=== PATIENT | male | born 2005 | race Caucasian/White ===

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

== ENCOUNTER 2024-02-02 13:55 | Emergency (ER) | payer BC, SELFPAY ==
--- NOTE | ~2024-02-02 | XR_ITS ---
EXAMINATION: XR lumbar spine 2-3V DATE: 02/02/2024 14:50 INDICATION: Back pain. TECHNIQUE: 3 views of lumbar spine were obtained. COMPARISON: None. FINDINGS: Bone alignment is normal. Vertebral body heights are normal. Intervertebral disc heights ar e normal. The facet joints are normal. IMPRESSION: 1. Normal lumbar spine. Reviewed, dictated and finalized at location A. IMPRESSION: 1. Normal lumbar spine.
--- NOTE | ~2024-02-02 | XR_ITS ---
EXAMINATION: [id number] DATE: 02/02/2024 14:49 INDICATION: Left rib pain. TECHNIQUE: A frontal view of the chest and 2 views on 3 radiographs of the left ribs were obtained. COMPARISON: None. FINDINGS: There is no pneumonia, pleural effusion, or pneumothorax. The heart size is normal. IMPRESSION: 1. No rib fracture. Reviewed, dictated and finalized at location A. IMPRESSION: 1. No rib fracture.
[2024-02-02 13:55] VITALS: BP 116/62; PULSE 71; RESP 16; TEMP 36.6; O2SAT 100
[2024-02-02] MEDS: ACETAMINOPHEN 325 MG TABLET 650 MG PO (14:28)
[2024-02-02] MEDS: IBUPROFEN 600 MG TABLET PO (14:28)
[2024-02-02] MEDS: CYCLOBENZAPRINE HCL 10 MG TABLET PO (14:29)
--- NOTE | 2024-02-02 14:29 | ED.GENADULT ---
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 This morning he woke up and had low back pain which subsequently radiated to the left ribcage and up to the left chest, worse with movement or lifting objects, relieved by rest. He took ibuprofen 800 mg at 6:40 a.m.. He went to work but was having a hard time doing his job she comes here for evaluation. Denies dyspnea. No abdominal pain. No falls or trauma. No paresthesias or radiculopathy symptoms in the upper lower extremities. No previous similar history. Related Data Allergies Allergy/AdvReac Type Severity Reaction Status Date / Time No Known Allergies Allergy Verified 02/02/24 14:25 Review of Systems Review of Systems: All systems reviewed & are unremarkable except as noted in HPI and below Constitutional: Constitutional: Denies chills, Denies excessive sweating, Denies fatigue, Denies fever(s), Denies headache(s) and Denies weakness Eyes: Eyes: Denies change in vision and Denies photophobia ENT: Denies dysphagia, Denies dizziness, Denies headache(s), Denies lip swelling, Denies nasal congestion, Denies sore throat and Denies tongue swelling Cardiovascular: Cardiovascular: Reports chest pain (left lateral chest wall), Denies syncope, Denies rapid heart rate and Denies dyspnea Respiratory: Respiratory: Denies cough, Denies dyspnea and Denies wheezing Gastrointestinal: Gastrointestinal: Reports abdominal pain (left flank), Denies constipation, Denies dysphagia, Denies diarrhea, Denies nausea and Denies vomiting Genitourinary: Genitourinary: Denies hematuria, Denies dysuria, Denies urinary frequency and Denies urinary urgency Musculoskeletal: Musculoskeletal: Reports back pain (lower back), Denies myalgias, Denies arthralgias, Denies joint swelling, Denies muscle cramps and Denies numbness Integumentary/Breasts: Skin/Breast: Denies pruritus, Denies erythema and Denies rash Neurologic: Denies confusion, Denies dizziness, Denies syncope, Denies headache(s), Denies focal weakness, Denies numbness and Denies weakness Psychiatric: Psychiatric: Denies anxiety and Denies confusion Endocrine: Endocrine: Denies excessive sweating and Denies fatigue Hematologic/Lymphatic: Hematologic/Lymphatic: Denies easy bleeding and Denies easy bruising Allergic/Immunologic: Allergic/Immunologic: Denies lip swelling, Denies tongue swelling and Denies wheezing PMFSH Past Medical History Medical History (Updated 02/02/24 @ 15:23 by Laureano Resendez MD) ADHD Depression Surgical History Surgical History History of placement of ear tubes Family History Family History Mother Family history of type 2 diabetes mellitus Social History Social History Smoking status: Never smoker Alcohol intake: never Living arrangements: with family Additional living arrangements comments: Lives with his mother and 1 brother. Has no contact with is father. Occupation/Education: student Exam Const: General: healthy appearing, no acute distress, alert and well nourished Nutritional Appearance: well nourished Orientation/consciousness: patient oriented x3 Limitations: no limitations HENMT: Head: normal to inspection Ears: external ears normal Face/Nose/Sinus: normal facial exam Face and sinus: normal facial exam Mouth: Yes moist mucous membranes Throat: posterior oropharynx normal Eyes: Conjunctivae: conjunctivae normal Pupils: Equal, round and reactive pupils present EOM: EOMs intact bilaterally Neck: Neck: no
[2024-02-02 15:00] LABS: Appearance Urine Clear (Clear); Bilirubin Urine Negative (Negative); Blood Urine Negative (Negative); Color Urine Yellow (Yellow); Glucose Urine UA Negative (Negative); Ketones Urine Negative (Negative); Leukocyte Esterase Ur Negative LEU/UL (Negative); Nitrate Urine Negative (Negative); Protein Urine Negative (Negative); Specific Grav Ur 1.025 (1.010-1.020)
[2024-02-02 15:01] LABS: Add Urine Microscopic? NO
[2024-02-02 15:34] VITALS: BP 107/60; PULSE 56; RESP 16; O2SAT 100
== END 2024-02-02 15:35 | disposition home or self-care (01) ==
PROVIDERS: Emergency Provider Emergency Medicine; PCP Family Medicine
DX: R07.89 Other chest pain (principal); M54.89 Other dorsalgia; F90.9 Attention-deficit hyperactivity disorder, unspecified type
CPT/HCPCS: 71101; 72100; 81003; 99284; A9270

== ENCOUNTER 2024-10-14 18:47 | Emergency (ER) | payer BC, SELFPAY ==
[2024-10-14 18:47] VITALS: BP 109/69; PULSE 75; RESP 18; TEMP 36.7; O2SAT 100
[2024-10-14 18:58] VITALS: O2SAT 100
[2024-10-14 19:31] LABS: Influenza A QL RT-PCR Negative (Negative); Influenza B QL RT-PCR Negative (Negative); RSV RNA, RT-PCR Negative (Negative); SARS-CoV-2 RNA PCR Negative (Negative)
--- NOTE | 2024-10-14 19:34 | ED_ITS ---
HPI - URI/Sore Throat General Chief Complaint: Upper Respiratory Infection Stated Complaint: cold symptoms; Time Seen by Provider: 10/14/24 18:51 Source: patient Mode of arrival: ambulatory Limitations: no limitations History of Present Illness HPI Narrative: this is a 19-year-old male with some cough and congestion for the last couple of days with no shortness of breath no audible wheezing no fever chills. MD elicited complaint: fever and cough Onset (ago): day(s) Consistency: constant Severity: mild Related Data Allergies Allergy/AdvReac Type Severity Reaction Status Date / Time No Known Allergies Allergy Verified 10/14/24 18:55 Review of Systems Review of Systems: All systems reviewed & are unremarkable except as noted in HPI and below PMFSH Past Medical History Medical History (Updated 10/14/24 @ 19:36 by Fabian Sepulveda MD) Tick bite Depression ADHD Surgical History Surgical History History of placement of ear tubes Family History Family History Mother Family history of type 2 diabetes mellitus Social History Social History Smoking status: Never smoker Alcohol intake: never Living arrangements: with family Additional living arrangements comments: Lives with his mother and 1 brother. Has no contact with is father. Occupation/Education: student Exam Const: General: healthy appearing and no acute distress Nutritional Appearance: well nourished Orientation/consciousness: patient oriented x3 Limitations: no limitations HENMT: Head: normal to inspection Eyes: Conjunctivae: conjunctivae normal Neck: Neck: normal visual inspection Chest: Chest palpation & inspection: normal inspection of the chest Resp: Effort & Inspection: normal respiratory effort Auscultation: clear to auscultation bilaterally Cardio: Rate: regular rate Rhythm: regular rhythm GI: GI Palp: Yes Soft to palpation Skin: General skin exam: normal color Rashes: no rashes Course Course Emergency Course: COVID RSV and influenza all negative, advised patient to get rest drink plenty of fluids can take Tylenol or Motrin. Vital Signs Vital signs: Vital Signs Temperature 36.7 C 10/14/24 18:47 Pulse Rate 75 10/14/24 18:47 Respiratory Rate 18 10/14/24 18:47 Blood Pressure 109/69 10/14/24 18:47 Pulse Oximetry 100 10/14/24 18:47 Oxygen Delivery Room Air 10/14/24 18:47 Temperature 36.7 C 10/14/24 18:47 Pulse Rate 75 10/14/24 18:47 Respiratory Rate 18 10/14/24 18:47 Blood Pressure 109/69 10/14/24 18:47 Pulse Oximetry 100 10/14/24 18:58 Oxygen Delivery Room Air 10/14/24 18:58 MDM - URI/Sore Throat Lab Data Labs: Lab Results 10/14/24 Range/Units 18:54 Influenza A (RT-PCR) Negative (Negative) Influenza B (RT-PCR) Negative (Negative) RSV (RT-PCR) Negative (Negative) SARS-CoV-2 RNA (RT-PCR) Negative (Negative) Critical Care Time Critical Care Time Critical Care Time: No Discharge Plan Discharge Clinical Impression: Viral infection Patient Disposition: Home, Self-Care Condition: Stable Instructions: Antibiotic Form, Viral Syndrome (ED) Additional Instructions: Advised patient to take Tylenol or Motrin, drink plenty of fluids and follow with primary if symptoms persist or worsen. Patient Language: Croatian Prescriptions: No Action triamcinolone acetonide 0.1 % ointment 1 applic topical BID 14 Days Qty: 80 1RF mupirocin 2 % ointment 1 applic topical BID 14 Days Qty: 22 1RF Follow-up/Referrals: Emery Patel DO [Primary Care Provider] - Time of Disposition: 19:36
== END 2024-10-14 19:45 | disposition home or self-care (01) ==
PROVIDERS: Emergency Provider Emergency Medicine; PCP Family Medicine
DX: B34.9 Viral infection, unspecified (principal); Z20.822 Contact with and (suspected) exposure to COVID-19
CPT/HCPCS: 87637; 99283